=== PATIENT | female | born 1975 ===

== ENCOUNTER 2017-12-18 10:22 | Emergency (ER) | payer OTHER ==
[2017-12-18 10:31] VITALS: BMI 24.7
[2017-12-18 10:33] VITALS: TEMP 98.3; O2SAT 100
--- NOTE | 2017-12-18 11:02 | ED PDOC ---
HPI: Chest Pain Time Seen by Provider: 12/18/17 10:50 Chief Complaint (Nursing): Palpitations Chief Complaint (Provider): Palpitations History Per: Patient History/Exam Limitations: no limitations Onset/Duration Of Symptoms: Intermittent Episodes (x2 weeks) Current Symptoms Are (Timing): Still Present Additional Complaint(s): 42 year old female presents to the emergency department with a complaint of palpitations ongoing for 2 weeks. She denies any chest pain, dizziness or shortness of breath. PMD: none provided Past Medical History Reviewed: Historical Data, Nursing Documentation, Vital Signs Vital Signs: Last Vital Signs Temp 98.3 F 12/18/17 10:31 Pulse 66 12/18/17 10:31 Resp 17 12/18/17 10:31 BP 125/77 12/18/17 10:31 Pulse Ox 100 12/18/17 11:42 - Medical History PMH: No Chronic Diseases - Family History Family History: States: Unknown Family Hx - Home Medications Home Medications: Ambulatory Orders Medication Instructions Recorded Non-Formulary 1 ea .ROUTE Q6 #1 ea 12/18/17 Non-Formulary 1 ea .ROUTE Q6 #1 ea 12/18/17 - Allergies Allergies/Adverse Reactions: Allergies Allergy/AdvReac Type Severity Reaction Status Date / Time No Known Allergies Allergy Verified 12/18/17 10:38 Review of Systems ROS Statement: Except As Marked, All Systems Reviewed And Found Negative Cardiovascular: Positive for: Palpitations. Negative for: Chest Pain Respiratory: Negative for: Shortness of Breath Neurological: Negative for: Dizziness Physical Exam - Reviewed Nursing Documentation Reviewed: Yes Vital Signs Reviewed: Yes - Physical Exam Appears: Positive for: Non-toxic, No Acute Distress Head Exam: Positive for: ATRAUMATIC, NORMAL INSPECTION, NORMOCEPHALIC Skin: Positive for: Normal Color Eye Exam: Positive for: Normal appearance, EOMI, PERRL Neck: Positive for: Normal Cardiovascular/Chest: Positive for: Regular Rate, Rhythm. Negative for: Murmur Respiratory: Positive for: Normal Breath Sounds. Negative for: Respiratory Distress Gastrointestinal/Abdominal: Positive for: Normal Exam, Soft. Negative for: Tenderness Extremity: Positive for: Normal ROM (upper/lower). Negative for: Pedal Edema ( bilateral), Calf Tenderness (bilateral) Neurologic/Psych: Positive for: Alert (x3), Oriented. Negative for: Motor/ Sensory Deficits - Laboratory Results Result Diagrams: 12/18/17 11:32 12/18/17 13:00 - ECG O2 Sat by Pulse Oximetry: 100 (RA) Pulse Ox Interpretation: Normal Medical Decision Making Medical Decision Making: Initial Impression: Palpitations Initial Plan: * CMP * T4 * TSH * Troponin I * Urine * CBC Time: 1106 --EKG: Sinus rhythm at [address] wave abnormality or acute changes. --Negative for . Scribe Attestation: Documented by Laila Berry, acting as a scribe for Jorden Calderón MD. Provider Scribe Attestation: All medical record entries made by the Scribe were at my direction and personally dictated by me. I have reviewed the chart and agree that the record accurately reflects my personal performance of the history, physical exam, medical decision making, and the department course for this patient. I have also personally directed, reviewed, and agree with the discharge instructions and disposition. Disposition - Clinical Impression Clinical Impression: Palpitations - Patient ED Disposition Is Patient to be Admitted: No Counseled Patient/Family Regarding: Studies Performed, Diagnosis, Need For Followup, Rx Given - Disposition Referrals: [facility] [Outside] Disposition: Routine/Home Disposition Time: 15:20 Condition: FAIR Prescriptions: Non-Formulary 1 ea .ROUTE Q6 #1 ea Non-Formulary 1 ea .ROUTE Q6 #1 ea Instructions: Palpitations Forms: [facility] (French) Print Language: [place]
[2017-12-18 11:41] LABS: BASO % 0.8 % (0.0-2.0); EOS # 0.3 K/uL (0.0-0.7); HEMOGLOBIN 11.9 g/dL (12.0-16.0); LYMPH # 1.6 K/uL (1.0-4.3); MEAN CELL VOLUME 83.6 fl (81.0-99.0); MEAN CORPUSCULAR HEMOGLOBIN 27.9 pg (27.0-31.0); MEAN CORPUSCULAR HGB CONC 33.3 g/dL (33.0-37.0); MEAN PLATELET VOLUME 8.9 fl (7.2-11.7); MONO # 0.4 K/uL (0.0-0.8); MONO % 6.3 % (0.0-10.0); NEUT # 3.6 K/uL (1.8-7.0); NEUT % 60.9 % (50.0-75.0); RBC 4.25 Mil/uL (3.80-5.20); RED CELL DISTRIBUTION WIDTH 12.8 % (11.5-14.5); WHITE BLOOD COUNT 5.9 K/uL (4.8-10.8)
[2017-12-18 14:10] LABS: ALB/GLOB RATIO 1.1 (1.0-2.1); ALBUMIN 4.2 g/dL (3.5-5.0); ALT/SGPT 19 U/L (9-52); AST/SGOT 24 U/L (14-36); BLOOD UREA NITROGEN 13 mg/dl (7-17); CALCIUM 9.4 mg/dL (8.4-10.2); GFR AFRICAN-AMERICAN > 60; GFR NON-AFRICAN AMERICAN > 60
[2017-12-18 14:25] LABS: T4 8.48 ug/dl (5.5-11.0)
[2017-12-18 15:56] VITALS: BP 127/75; PULSE 64; RESP 18
== END 2017-12-18 15:36 | disposition home or self-care (01) ==
LOC: H.ER 10:22
DX: R00.2 Palpitations (principal)

== ENCOUNTER 2018-07-20 09:41 | Emergency (ER) | payer SELFPAY ==
[2018-07-20 09:45] VITALS: BMI 23.1
[2018-07-20 09:46] VITALS: O2SAT 100
--- NOTE | 2018-07-20 11:00 | ED PDOC ---
HPI: Female Pain Time Seen by Provider: 07/20/18 09:49 Additional History Per: Patient Additional Complaint(s): 43 y/o F with PMH of asthma, uterine fibroid comes to to the ER c/o vaginal discharge and asking for Gc/CL work up. As per patient she is having Thick, yellow discharge with itching since last 5 days, denies any smell or fever or bleeding. States her boyfriend just diagnosed with gonorrhea 1 day ago and she didnt wanted to wait until her appt with PMD. Denies any chest pain, SOB, dizziness or abdominal pain. PMH:asthma, uterine fibroid PSH: 2007 Allg: NKDA Meds: None SH: Denies alcohol, smoking or drug use Sexual hx: Active with only one partner, on and off condoms use FH: Denies PMD: [facility] Past Medical History Vital Signs: Last Vital Signs Temp 98.1 F 07/20/18 09:45 Pulse 74 07/20/18 09:45 Resp 17 07/20/18 09:45 BP 106/63 07/20/18 09:45 Pulse Ox 100 07/20/18 09:45 - Family History Family History: States: Unknown Family Hx - Home Medications Home Medications: Ambulatory Orders Medication Instructions Recorded Non-Formulary 1 ea .ROUTE Q6 #1 ea 12/18/17 Non-Formulary 1 ea .ROUTE Q6 #1 ea 12/18/17 - Allergies Allergies/Adverse Reactions: Allergies Allergy/AdvReac Type Severity Reaction Status Date / Time No Known Allergies Allergy Verified 12/18/17 10:38 Review of Systems Constitutional: Negative for: Fever Eyes: Negative for: Pain ENT: Negative for: Ear Pain Cardiovascular: Negative for: Chest Pain Respiratory: Negative for: Cough, Shortness of Breath Gastrointestinal: Negative for: Nausea, Vomiting, Abdominal Pain, Diarrhea, Constipation, Rectal Pain Genitourinary Female: Positive for: Vaginal Discharge. Negative for: Dysuria, Frequency, Incontinence, Hematuria, Vaginal Bleeding, Pelvic Pain, Rash Musculoskeletal: Negative for: Neck Pain Skin: Negative for: Rash Neurological: Negative for: Weakness Psych: Negative for: Anxiety Physical Exam - Physical Exam Appears: Positive for: No Acute Distress Head Exam: Positive for: NORMAL INSPECTION Eye Exam: Positive for: Normal appearance ENT: Positive for: Normal ENT Inspection Neck: Positive for: Normal Cardiovascular/Chest: Positive for: Regular Rate, Rhythm Respiratory: Positive for: Normal Breath Sounds Gastrointestinal/Abdominal: Positive for: Bowel Sounds, Soft. Negative for: Tenderness, Distended, Guarding Pelvic Exam: Positive for: External Exam Normal, Speculum Exam Normal (No discharge seen ), Bimanual Exam Normal, No Cerv. Motion Tender. Negative for: Blood Back: Positive for: Normal Inspection. Negative for: L CVA Tenderness, R CVA Tenderness Neurologic/Psych: Positive for: Alert, Oriented - ECG O2 Sat by Pulse Oximetry: 100 - Progress ED Course And Treament: 43 y/o F, c/o vaginal discharge and requesting GC/CL testing - U dip - U preg - Cultures GC/CT - Pelvic exam unremarkable: no discharge Case discussed with Dr. Cazares PMD to follow up on culture Dr. Elliott made aware Appt at [facility] on 08/10/18 Patient was educated on safe sex Educated on treatment plan for partner Patient agrees with discharge plan Re-evaluation Time: 11:12 Condition: Re-examined Medical Decision Making Medical Decision Making: Vaginal irritation, Screening for gonorrhea and chlamydia Disposition - Clinical Impression Clinical Impression: Vaginal irritation, Screening for gonorrhea, Screening for chlamydial disease - Patient ED Disposition Is Patient to be Admitted: No - Disposition Referrals: eGrardo Elliott MD [Resident] - Disposition: Routine/Home Disposition Time: 11:14 Condition: STABLE Additional Instructions: Educated on safe sex F/u with PMD for cultures Instructions: Screening for Sexually Transmitted Infections, Vaginal Discharge in Adults Forms: [facility] (Colombian) Print Language: [place]AST [place]
[2018-07-20 12:16] VITALS: BP 111/70; PULSE 75; RESP 18; TEMP 98.3
== END 2018-07-20 12:00 | disposition home or self-care (01) ==
LOC: H.ER 09:41
DX: N89.8 Other specified noninflammatory disorders of vagina (principal); Z11.3 Encounter for screening for infections with a predominantly sexual mode of transmission; J45.909 Unspecified asthma, uncomplicated